=== PATIENT | male | born 1965 | race Caucasian/White ===

== ENCOUNTER 2024-01-19 10:48 | Emergency (ER) | payer MEDICAID ==
[~2024-01-19] VITALS: Ht 175.3 cm; Wt 65.6 kg
[2024-01-19] MEDS: methylPREDNISolone SOD SUCC 125 MG/2 ML VL IM ONE (12:38)
[2024-01-19] MEDS: EPINEPHrine HCL 1 MG/1 ML AMP SC ONE (12:38)
[2024-01-19 12:45] VITALS: BP 131/81; PULSE 75; RESP 19; TEMP 97.4; O2SAT 98
[2024-01-19] MEDS ORDERED: METH4PAK PO (13:32)
[2024-01-19] MEDS ORDERED: TRIA0.02 TOP (13:32)
== END 2024-01-19 13:48 | disposition home or self-care (01) ==
LOC: ER 10:48
DX: T63.441A Toxic effect of venom of bees, accidental (unintentional), initial encounter (principal); Z79.899 Other long term (current) drug therapy; Y92.89 Other specified places as the place of occurrence of the external cause
CPT/HCPCS: 96372; 99283; J0171; J2919

== ENCOUNTER 2024-12-17 18:21 | Inpatient (IN) | payer MEDICAID ==
[~2024-12-17] VITALS: Ht 170.2 cm; Wt 67.8 kg
[~2024-12-17 18:21] MED LIST: METH4PAK PO; TRIA0.02 TOP
--- NOTE | 2024-12-17 18:49 | ED.PDOC ---
History of Present Illness HPI Comments 59 year old male presents to the ED with a chief complaint of heat exhaustion onset 1 day. Patient states he has been experiencing abdominal pain, nausea, muscle spasms, bilateral leg cramping , back pain for the past day. Patient noticed symptoms worsened today, came to ED. Denies any PMHx as well as vomiti ng, diarrhea, chest pain, shortness of breath, dizziness, headache, blurry vision, dysuria, hematuria, fevers, chills. No other symptoms or modifying factors present at this time. Time Seen by MD: 18:25 Reviewed Notes: Medications, Allergies Allergies: Coded Allergies: NO KNOWN ALLERGIES (Unverified , 01/19/24) Home Meds Active Scripts Methylprednisolone (Medrol Dosepak) 4 Mg Heber, 4 MG PO UD, #21 TAB UAD Prov:TIGIST FOSS 01/19/24 Triamcinolone Acetonide (Triamcinolone Acetonide) 0.025 % Cre, 1 APPLIC TOP BID, #30 GRAMS Prov:TIGIST FOSS 01/19/24 Information Source: Patient Mode of Arrival: Ambulatory Severity: Moderate Timing: Days Duration: Since onset Prehospital treatment: None Vital Signs Vital Signs Date Time Temp Pulse Resp B/P (MAP) Pulse Ox O2 Delivery O2 Flow Rate FiO2 12/17/24 18:35 98.4 105 17 128/92 (104) 97 98.4 Physical Exam General: Awake, alert and oriented. No acute distress. Skin: Skin in warm, dry and intact. Appropriate color for ethnicity. HEENT: The head is normocephalic and atraumatic. Conjunctivae are clear without exudates or hemorrhage. Sclera is non-icteric. EOM are intact. No signs of nystagmus. Eyelids are normal in appearance without swelling or lesions. Oral mucosa is pink and moist Neck: The neck is supple with normal range of motion. No JVD. Cardiac: Heart rate and rhythm are normal. No murmurs, gallops, or rubs are auscultated. Respiratory: No signs of respiratory distress. Lung sounds are clear in all lobes bilaterally without rales, rhonchi, or wheezes. Abdominal: Abdomen is soft, non-tender without distention, guarding or rigidity. Bowel sounds are present and normoactive in all four quadrants. Extremities: Upper and lower extremities are atraumatic in appearance without deformity or edema. Neurological: The patient is awake, alert and oriented to person, place, and time with normal speech. Speech is clear. There is no facial asymmetry. Psychiatric: Appropriate mood and affect. Good judgement and insight. Review of Systems: REVIEW OF SYSTEMS: No fever, no chills, or fatigue HEENT: No sore throat, no earache, no congestion, no neck pain. Cardiac: No chest pain. No palpitations. Lungs: No shortness of breath, no cough. GI: Positive nausea, no vomiting, no diarrhea, no constipation, positive abdominal pain : No dysuria, frequency, or urgency. No hematuria. Musculoskeletal: Positive back pain, positive myalgias, No joint pain , no joint swelling, no extremity edema. Skin: No rash, no itching. Neuro: No headache, no dizziness, no weakness Past Medical History PAST MEDICAL HISTORY: Denies Surgical History: Denies all surgeries Family History Family History: Reviewed,noncontributory to illness Social History Smoker: Non-Smoker Alcohol: Denies ETOH Use Drugs: Denies Drug Use Lives In: Home Was a procedure done? Was a procedure done?: No Differential Dx Considerations may include: Dehydration, rhabdomyolysis, pancreatitis, acute kidney injuries, electrolyte imbalance, other X-Ray, Labs, Meds, VS Vital Signs Date Time Temp Pulse Resp B/P (MAP) Pulse Ox O2 Delivery O2 Flow Rate FiO2 12/17/24 18:35 98.4 105 17 128/92 (104) 97 98.4 Lab Test 12/17/24 19:01 Range/Units White Blood Count 10.7 4.4-10.8 10^3/uL Red Blood Count 5.76 4.5-5.90 10^6/uL Hemoglobin 17.8 H 13.5-17.5 g/dL Hematocrit 51.3 41.0-53.0 % Mean Corpuscular Volume 89.1 80.0-100.0 fL Mean Corpuscular Hemoglobin 31.0 28.0-32.0 pg Mean Corpuscular Hemoglobin Concent 34.8 32.0-36.0 g/dL Red Cell Distribution Width 14.0 11.8-14.3 % Platelet Count 375 140-450 10^3/uL Mean Platelet Volume 6.6 L 6.9-10.8 fL Neutrophils (%) (Auto) 68.2 37.0-80.0 % Lymphocytes (%) (Auto) 23.7 10.0-50.0 % Monocytes (%) (Auto) 6.7 0.0-12.0 % Eosinophils (%) (Auto) 0.8 0.0-7.0 % Basophils (%) (Auto) 0.6 0.0-2.0 % Neutrophils # (Auto) 7.3 1.6-8.6 10 ^3/uL Lymphocytes # (Auto) 2.5 0.4-5.4 10 ^3/uL Monocytes # (Auto) 0.7 0-1.3 10 ^3/uL Eosinophils # (Auto) 0.1 0-0.8 10 ^3/uL Basophils # (Auto) 0.1 0-0.2 10 ^3/uL Nucleated Red Blood Cells 0.1 % Sodium Level 139 136-145 mmol/L Potassium Level 4.2 3.5-5.1 mmol/L Chloride Level 104 98-107 mmol/L Carbon Dioxide Level 18 L 20-31 mmol/L Anion Gap 17 H 5-15 Blood Urea Nitrogen 28 H 9-23 mg/dL Creatinine 2.06 H 0.700-1.30 mg/dL Glomerular Filtration Rate Calc 36 >90 mL/min BUN/Creatinine Ratio 13.6 10.0-20.0 Serum Glucose 147 H 74-106 mg/dL Calcium Level 11.6 H 8.7-10.4 mg/dL Magnesium Level 2.3 1.6-2.6 mg/dL Creatine Kinase 279 H 46-171 U/L Current Medications Medications (Trade) Dose Ordered Sig/Abdoul Route Start Time Stop Time Status Last Admin Sodium Chloride 1,000 ml @ 1,000 mls/hr Q1H ONCE IV 12/17/24 18:45 12/17/24 19:44 DC 12/18/24 01:28 Time of 1ST Reevaluation: 18:55 Reevaluation 1ST: Unchanged Patient Education/Counseling: Other (Need for admission) Family Education/Counseling: No Family Present SEPSIS Sepsis Screen Physician Orders Urinalysis (12/17/24 18:39) Vital Signs Date Time Temp Pulse Resp B/P (MAP) Pulse Ox O2 Delivery O2 Flow Rate FiO2 12/17/24 18:35 98.4 105 17 128/92 (104) 97 98.4 Laboratory Tests Test 7/9/25 19:01 White Blood Count 10.7 10^3/uL (4.4-10.8) Medications Medications Dose Ordered Sig/Abdoul Route Start Time Stop Time Status Last Admin Dose Admin Sodium Chloride 1,000 ml @ 1,000 mls/hr Q1H ONCE IV 12/17/24 18:45 12/17/24 19:44 DC 12/18/24 01:28 Departure 1 Departure Time of Disposition: 19:39 Impression: Primary Impression: MISHEL (acute kidney injury) Disposition: ADMITTED INPATIENT Condition: Stable Comments Patient is stabilized in the emergency department IV fluids initiated in the ED Patient admitted to hospitalist service for further treatment, evaluation and monitoring. Critical Care Note Critical Care Time?: No Stability Stability form required: No I personally scribed for CESAR ARAGON MD ([email or web address]) on 12/17/24 at 18:49. Electronically submitted by Lynn Caldwell ([email or web address]). CESAR ARAGON MD Dec 17, 2024 18:49
[2024-12-17 19:18] LABS: Hematocrit 51.3 % (41.0-53.0); Hemoglobin 17.8 g/dL (13.5-17.5); Mean Corpuscular Hemoglobin 31.0 pg (28.0-32.0); Mean Corpuscular Volume 89.1 fL (80.0-100.0); Nucleated Red Blood Cells % 0.1 %
[2024-12-17 19:23] LABS: Chloride 104 mmol/L (98-107); Potassium 4.2 mmol/L (3.5-5.1); Sodium 139 mmol/L (136-145)
[2024-12-17 19:24] LABS: Anion Gap 17 (5-15)
[2024-12-17 19:30] LABS: BUN/Creatinine Ratio 13.6 (10.0-20.0); Magnesium 2.3 mg/dL (1.6-2.6)
[2024-12-17 19:31] LABS: Blood Urea Nitrogen 28 mg/dL (9-23); Calcium 11.6 mg/dL (8.7-10.4); Carbon Dioxide 18 mmol/L (20-31); Glucose 147 mg/dL (74-106)
[2024-12-17 19:37] LABS: Creatine Kinase IFCC 279 U/L (46-171)
[2024-12-18] VITALS (8 sets, daily range): BP systolic 104–132; BP diastolic 59–84; PULSE 72–90; RESP 16–20; TEMP 97.9–99.6; O2SAT 92–98
--- NOTE | 2024-12-18 00:39 | DVHHP2 ---
History of Present Illness Reason for Visit: Dehydration History of Present Illness 59-year-old male presents for evaluation of dehydration. Patient reports being outside in the sun today all day removing weeds. When he got back home he developed nausea with muscle spasms. Denies chest pain or palpitations. No r espiratory symptoms. Past Medical History Denies Past Surgical History Denies Family History Noncontributory Smoke: No ALCOHOL: heavy Drugs: None Review of Systems Review of Systems Review of systems are currently negative otherwise addressed in HPI. Allergies: Coded Allergies: NO KNOWN ALLERGIES (Unverified , 01/19/24) Medications Current Medications Medications Dose Ordered Sig/Abdoul Route Start Time Stop Time Status Last Admin Dose Admin Ondansetron HCl 4 mg Q4HP PRN IV 12/17/24 21:30 Exam Vital Signs Vital Signs Date Time Temp Pulse Resp B/P (MAP) Pulse Ox O2 Delivery O2 Flow Rate FiO2 12/17/24 18:35 98.4 105 17 128/92 (104) 97 98.4 Exam Gen: 59-year-old male in mild distress Skin: Warm, dry, normal color and texture, no rash. HEENT: Normocephalic atraumatic, mucous membranes moist and pink. Neck: Cervical and supraclavicular nodes normal without enlargement, trachea is midline, thyroid gland is normal without masses. Pulmonary: Clear to auscultation and percussion bilaterally. Cardiac: He is tachycardic Abdomen: Soft, nontender, nondistended, bowel sounds present all 4 quadrants, no guarding, no rigidity, no organomegaly. Extremities: No cyanosis, clubbing, no edema Neuro: Cranial nerves II through XII grossly intact, normal affect and speech, no focal motor deficits. Labs/Xrays Labs Test 12/17/24 19:01 Range/Units White Blood Count 10.7 4.4-10.8 10^3/uL Red Blood Count 5.76 4.5-5.90 10^6/uL Hemoglobin 17.8 H 13.5-17.5 g/dL Hematocrit 51.3 41.0-53.0 % Mean Corpuscular Volume 89.1 80.0-100.0 fL Mean Corpuscular Hemoglobin 31.0 28.0-32.0 pg Mean Corpuscular Hemoglobin Concent 34.8 32.0-36.0 g/dL Red Cell Distribution Width 14.0 11.8-14.3 % Platelet Count 375 140-450 10^3/uL Mean Platelet Volume 6.6 L 6.9-10.8 fL Neutrophils (%) (Auto) 68.2 37.0-80.0 % Lymphocytes (%) (Auto) 23.7 10.0-50.0 % Monocytes (%) (Auto) 6.7 0.0-12.0 % Eosinophils (%) (Auto) 0.8 0.0-7.0 % Basophils (%) (Auto) 0.6 0.0-2.0 % Neutrophils # (Auto) 7.3 1.6-8.6 10 ^3/uL Lymphocytes # (Auto) 2.5 0.4-5.4 10 ^3/uL Monocytes # (Auto) 0.7 0-1.3 10 ^3/uL Eosinophils # (Auto) 0.1 0-0.8 10 ^3/uL Basophils # (Auto) 0.1 0-0.2 10 ^3/uL Nucleated Red Blood Cells 0.1 % Sodium Level 139 136-145 mmol/L Potassium Level 4.2 3.5-5.1 mmol/L Chloride Level 104 98-107 mmol/L Carbon Dioxide Level 18 L 20-31 mmol/L Anion Gap 17 H 5-15 Blood Urea Nitrogen 28 H 9-23 mg/dL Creatinine 2.06 H 0.700-1.30 mg/dL Glomerular Filtration Rate Calc 36 >90 mL/min BUN/Creatinine Ratio 13.6 10.0-20.0 Serum Glucose 147 H 74-106 mg/dL Calcium Level 11.6 H 8.7-10.4 mg/dL Magnesium Level 2.3 1.6-2.6 mg/dL Creatine Kinase 279 H 46-171 U/L SEPSIS Sepsis Screen Date sepsis recognized/suspect: Dec 17, 2024 Time Sepsis recognized/suspect: 1838 Recent Procedure: No On Antibiotic Therapy: No Respiratory Rate >20: No Heart Rate >90: No Temp<36 C (96.8 F) or >38.3 C: No SBP <90 or MAP <65 mmHG: No New Acute Mental Status Change: No Is the patient on CPAP, BIPAP,: No Physician Orders Urinalysis (12/17/24 18:39) Sodium Chloride 0.9% (12/17/24 21:30) Regular Diet (12/18/24 Breakfast) Basic Metabolic Panel (12/18/24 04:00) Admit (12/17/24 21:29) Ondansetron Hcl (Zofran) (12/17/24 21:30) Condition: Stable (12/17/24 21:29) Bedrest With Bathroom Privileg (12/17/24 21:29) Vital Signs Date Time Temp Pulse Resp B/P (MAP) Pulse Ox O2 Delivery O2 Flow Rate FiO2 12/17/24 18:35 98.4 105 17 128/92 (104) 97 98.4 Laboratory Tests Test 12/17/24 19:01 White Blood Count 10.7 10^3/uL (4.4-10.8) Assessment/Plan Assessment/Plan Assessment Heat exhaustion Acute kidney injury Severe dehydration Plan Admit the patient to [facility] to the hospitalist Maintenance IV fluids Continue treatment per orders. Plan discussed with: Patient My Orders Orders - KIRSTEN RAMIREZ Procedure Category Date Status Time Sodium Chloride 0.9% PHA 12/17/24 In Process 21:30 Regular Diet DIET 12/18/24 Transmitted Breakfast Basic Metabolic Panel LAB 12/18/24 Logged 04:00 Admit ADMIT 12/17/24 Transmitted 21:29 Ondansetron Hcl PHA 12/17/24 In Process (Zofran) 21:30 Condition: Stable DON 12/17/24 In Process 21:29 Bedrest With Bathroom DON 12/17/24 In Process Privileg 21:29 Date of Service: Dec 17, 2024 Billing Provider: KIRSTEN RAMIREZ Common Visit Codes: [id number] INP/OBS CARE (MOD) KIRSTEN RAMIREZ Dec 18, 2024 00:39
[2024-12-18] MEDS: SODIUM CHLORIDE 0.9% 1,000 ML IV ONE ×2 (01:28→02:46)
[2024-12-18] MEDS: ONDANSETRON HCL 4 MG/2 ML VIAL IV PRN (01:28)
[2024-12-18 04:34] LABS: Anion Gap 12 (5-15); Carbon Dioxide 21 mmol/L (20-31); Chloride 107 mmol/L (98-107); Potassium 3.9 mmol/L (3.5-5.1); Sodium 140 mmol/L (136-145)
[2024-12-18 04:35] LABS: Calcium 9.5 mg/dL (8.7-10.4)
[2024-12-18 04:40] LABS: BUN/Creatinine Ratio 20.2 (10.0-20.0)
[2024-12-18 04:47] LABS: Blood Urea Nitrogen 35 mg/dL (9-23); Glucose 138 mg/dL (74-106)
[2024-12-18] MEDS: SODIUM CHLORIDE 0.9% 500 ML IV ONE (08:39)
[2024-12-18] MEDS: SODIUM CHLORIDE 0.9% 1,000 ML IV SCH (09:46)
[2024-12-18 10:21] LABS: Hematocrit 44.9 % (41.0-53.0); Hemoglobin 15.5 g/dL (13.5-17.5); Mean Corpuscular Hemoglobin 30.7 pg (28.0-32.0); Mean Corpuscular Volume 89.0 fL (80.0-100.0); Nucleated Red Blood Cells % 0.1 %
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
[2024-12-18] MEDS: ALBUTEROL SULF 2.5 MG/0.5ML(0.5%) NEB SOLN NEB ONE (12:40)
[2024-12-18] MEDS: IPRATROPIUM BROM 0.5 MG/2.5ML INH SOL NEB ONE (12:41)
[2024-12-18 12:47] LABS: Alanine Aminotransferase 22.0 U/L (7-40); Albumin 5.2 g/dL (3.2-4.8); Alkaline Phosphatase 114.0 U/L (46-116); Bilirubin, Direct 0.2 mg/dL (<0.3); Bilirubin, Total 0.5 mg/dL (0.2-1.0); Total Protein 8.0 g/dL (5.7-8.2)
[2024-12-18] MEDS: ALBUTEROL SULF 2.5 MG/0.5ML(0.5%) NEB SOLN ONE (12:47)
[2024-12-18] MEDS: IPRATROPIUM BROM 0.5 MG/2.5ML INH SOL ONE (12:47)
[2024-12-18] MEDS: cefTRIAXone 1GM/50ML D5W 50 ML IV SCH (12:56)
--- NOTE | 2024-12-18 13:28 | DVH ---
INDICATION: MISHEL on CKD, solitary kidney reported. TECHNIQUE: Multiple real-time sonographic images of the kidneys and bladder were obtained. COMPARISON: None FINDINGS: The right kidney measures 12 cm in length, which is normal in size. There is normal echogen icity of the right kidney. No hydronephrosis. Left kidney surgically absent. No large intraluminal masses are seen in the bladder. Bladder is distended IMPRESSION: 1. Normal sonographic appearance of the kidneys. No hydronephrosis.
[2024-12-18 13:40] LABS: Lipase 26.0 U/L (12-53)
[2024-12-19 01:00] VITALS: BP 107/67; PULSE 71; RESP 19; TEMP 97.9; O2SAT 93
[2024-12-19 05:00] VITALS: BP 104/67; PULSE 64; RESP 18; TEMP 98; O2SAT 96
[2024-12-19 07:41] LABS: Alanine Aminotransferase 17 U/L (7-40); Albumin 4.0 g/dL (3.2-4.8); Alkaline Phosphatase 83 U/L (46-116); Anion Gap 9 (5-15); BUN/Creatinine Ratio 18.0 (10.0-20.0); Blood Urea Nitrogen 20 mg/dL (9-23); Calcium 9.2 mg/dL (8.7-10.4); Carbon Dioxide 23 mmol/L (20-31); Glucose 92 mg/dL (74-106); Potassium 4.0 mmol/L (3.5-5.1); Sodium 141 mmol/L (136-145); Total Protein 6.3 g/dL (5.7-8.2)
[2024-12-19 07:42] LABS: Bilirubin, Total 0.9 mg/dL (0.2-1.0)
[2024-12-19 07:43] LABS: Chloride 109 mmol/L (98-107)
[2024-12-19 07:45] LABS: Hematocrit 38.1 % (41.0-53.0); Hemoglobin 12.9 g/dL (13.5-17.5); Mean Corpuscular Hemoglobin 30.5 pg (28.0-32.0); Mean Corpuscular Volume 90.5 fL (80.0-100.0); Nucleated Red Blood Cells % 0.0 %
[2024-12-19 07:53] VITALS: RESP 16
[2024-12-19 09:00] VITALS: BP 142/92; PULSE 78; RESP 18; TEMP 97.7; O2SAT 96
[2024-12-19 14:01] VITALS: TEMP 36.5
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
--- NOTE | 2024-12-22 07:37 | ECG ---
[facility] Test Date: 2024-12-18 Test Time: 11:12:17 Pat Name: SEDRICK GARCIA Department: Respiratoy Room: 0221 A Gender: M Coding Support Specialist: BONITA : 1965 Requested By: QUIQUE TUCKER Order Number: [id number] Reading MD: Winston Bal Measurements Intervals [place] Rate: 87 P: 19 NE: 133 QRS: 16 QRSD: 102 T: 66 QT: 379 QTc: 456 Interpretive Statements Sinus rhythm Electronically Signed On 12-22-2024 13:24:16 PDT by Winston Bal Please click the below link to view image of tracing.
== END 2024-12-19 14:22 | disposition home or self-care (01) | DRG 815 ==
LOC: ER 18:21 → OVERFLOW 21:29 → CENTRAL 12-18 15:28
PROVIDERS: ADMIT Student in an Organized Health Care Education/Training Program; ATTEND Student in an Organized Health Care Education/Training Program
DX: T67.5XXA Heat exhaustion, unspecified, initial encounter (principal); N17.0 Acute kidney failure with tubular necrosis; E87.29 Other acidosis; M62.82 Rhabdomyolysis; E86.0 Dehydration; N18.9 Chronic kidney disease, unspecified; J44.9 Chronic obstructive pulmonary disease, unspecified; D72.829 Elevated white blood cell count, unspecified; X30.XXXA Exposure to excessive natural heat, initial encounter; Y93.89 Activity, other specified; Y92.89 Other specified places as the place of occurrence of the external cause; Y99.8 Other external cause status; A09 Infectious gastroenteritis and colitis, unspecified
CPT/HCPCS: 36415; 76775; 80048; 80053; 80076; 82550; 83036; 83690; 83735; 85025; 93005; 94640; G0378; J2405; J3490